=== PATIENT | female | born 1985 | race Caucasian/White ===

== ENCOUNTER 2018-07-05 12:31 | Emergency (ER) | payer BC ==
[~2018-07-05] VITALS: Ht 154.9 cm; Wt 97.7 kg
[2018-07-05 12:34] VITALS: Ht 154.9 cm; Wt 97.7 kg
[2018-07-05 13:05] LABS: BASOPHILS 0.2 % (0-2); EOSINOPHILS 2.1 % (0-7); HEMATOCRIT 41.6 % (36.0-48.0); HEMOGLOBIN 13.4 g/dL (12-16); IMMATURE GRANULOCYTES 0.1 % (0-5); LYMPHOCYTES 24.6 % (15-50); MCH 27.5 pg (26.0-34.0); MCHC 32.2 g/dL (31.0-37.0); MCV 85.2 fL (80.0-100.0); MEAN PLATELET VOLUME 10.4 fL (7.4-10.4); PLATELET COUNT 275 10x3/uL (130-400); RBC 4.88 10x6/uL (4.00-5.40); WBC 9.4 10x3/uL (4.8-10.8)
[2018-07-05 13:19] LABS: ALBUMIN 3.7 g/dL (3.4-5.0); ALKALINE PHOSPHATASE 69 U/L (46-116); ALT (SGPT) 16 U/L (10-68); BILIRUBIN - TOTAL 0.34 mg/dL (0.2-1.3); CALC OSMOLALITY 278 mosm/kg (275-300); CALCIUM 9.2 mg/dL (8.5-10.1); CARBON DIOXIDE 27.6 mmol/L (21.0-32.0); CHLORIDE - SERUM 101 mmol/L (98-107); CREATININE - SERUM 0.8 mg/dL (0.6-1.3); GLUCOSE 100 mg/dL (74-106); POTASSIUM - SERUM 3.9 mmol/L (3.5-5.1); PROTEIN - SERUM 7.7 g/dL (6.4-8.2); SODIUM 139 mmol/L (136-145); UREA NITROGEN 15 mg/dL (7-18); eGFR NON AFRICAN AMERICAN 88 mL/min (90-120)
[2018-07-05 13:40] LABS: HCG - QUANTITATIVE (MATERNAL) 14738 mIU/mL
[2018-07-05 15:38] LABS: APPEARANCE SL CLDY (CLEAR); BILIRUBIN NEGATIVE (NEGATIVE); COLOR YELLOW (YELLOW); GLUCOSE NEGATIVE (NEGATIVE); KETONE NEGATIVE (NEGATIVE); NITRITE NEGATIVE (NEGATIVE); PROTEIN NEGATIVE (NEGATIVE); SPECIFIC GRAVITY 1.005 (1.005-1.020); UROBILINOGEN NORMAL (NORMAL)
[2018-07-05 15:40] LABS: RED CELLS - URINE 0-5 /hpf (0-5); WHITE CELLS - URINE 0-5 /hpf (0-5)
[2018-07-05 15:41] LABS: BACTERIA MODERATE /hpf (NONE SEEN)
[2018-07-05 17:50] VITALS: BP 118/74
[2018-07-23 07:18] VITALS: Ht 154.9 cm; Wt 97.7 kg
== END 2018-07-05 17:51 | disposition home or self-care (01) ==
LOC: D.ER 12:31
PROVIDERS: Family Medicine
DX: O20.0 Threatened abortion (principal); Z3A.10 10 weeks gestation of pregnancy

== ENCOUNTER 2018-07-23 06:59 | Day surgery (SDC) | payer BC ==
[2018-07-21 17:05] LABS: BASOPHILS 0.5 % (0-2); EOSINOPHILS 2.4 % (0-7); HEMATOCRIT 40.5 % (36.0-48.0); HEMOGLOBIN 13.1 g/dL (12-16); IMMATURE GRANULOCYTES 0.1 % (0-5); LYMPHOCYTES 28.4 % (15-50); MCH 27.8 pg (26.0-34.0); MCHC 32.3 g/dL (31.0-37.0); MEAN PLATELET VOLUME 10.5 fL (7.4-10.4); NEUTROPHILS 63.6 % (40-80); PLATELET COUNT 269 10x3/uL (130-400); RBC 4.71 10x6/uL (4.00-5.40); RDW 13.3 % (11.5-14.5); WBC 10.3 10x3/uL (4.8-10.8)
[~2018-07-23] VITALS: Ht 154.9 cm; Wt 99.3 kg
--- NOTE | ~2018-07-23 | OP ---
PATIENT NAME: ROBE GARCIA MEDICAL RECORD: [id number] :87 [facility] ADMISSION DATE: SURGEON: KODY RUIZ MD DATE OF OPERATION: 07/23/2018 PREOPERATIVE DIAGNOSIS: Incomplete . POSTOPERATIVE DIAGNOSIS: Incomplete . PROCEDURE: Suction dilation and curettage. SURGEON: Kody Ruiz MD ANESTHESIA: General. INTRAVENOUS FLUIDS: Per anesthesia record. SPECIMENS: Endometrial curettings. COMPLICATIONS: None. FINDINGS: 1. Grossly normal-appearing external genitalia. 2. Cervix with small bleeding, but otherwise grossly normal. DESCRIPTION OF PROCEDURE: The patient was taken to the operating room, where general anesthesia was achieved without any difficulty. The patient was then prepped and draped in normal sterile fashion in the dorsal lithotomy position in the [facility]. The vagina was prepped with Betadine, and the bladder was drained of approximately 100 cc of clear urine. At this point, a Graves speculum was placed into the vagina and the cervix was grasped on its anterior lip with a single-tooth tenaculum. The patient was found to be partially dilated, and the dilator up to 9 mm was found to pass with minimal resistance. At this point, a #8 suction curette was then used to gently enter the endometrial canal. Two passes with the suction curette was performed with gross return of products of conception. A #1 sharp curette was then used to gently feel the 4 quadrants of the uterus and no further products of conception were palpated. A last pass was performed with the suction curette to remove blood. The tenaculum was removed. Only scant bleeding was noted from the cervical os at that time. The patient tolerated the procedure well, was transferred to postanesthesia recovery stable without incident. TRANSINT:[id number] Voice Confirmation ID: [id number] DOCUMENT ID: [id number] KODY RUIZ MD CC: [id number] DICTATION DATE: 08/08/18 0649 [employer] MACHINE OPERATOR: 08/08/18 1015 [facility] 07/23/18 [facility] [address] [place] [address]
[2018-07-23 07:18] VITALS: BP 109/72; Ht 154.9 cm; Wt 99.3 kg
[2018-07-23 07:21] LABS: HCG URINE NEGATIVE (NEGATIVE)
--- NOTE | 2018-07-23 10:10 | NUR ---
REC'D FROM RR. FAMILY AT BEDSIDE. DENIES PAIN. SPRITE AND FL TRAY BROUGHT TO PT.
--- NOTE | 2018-07-23 10:30 | NUR ---
CALLED DR PUCKETT'S OFFICE FOR DC ORDERS. TOLERATED FL TRAY.
--- NOTE | 2018-07-23 11:10 | NUR ---
VOIDED WITHOUT DIFFICULTY. IV DC'D WITH CATHETER INTACT. WRITTEN AND VERBAL DC INST GIVEN TO PT ALONG WITH RX. VERBALIZED UNDERSTANDING.
--- NOTE | 2018-07-23 11:45 | NUR ---
DC'D HOME WITH FAMILY VIA PRIVATE VEHICLE. TAKEN TO VEHICLE VIA WC. STABLE AT TIME OF DC.
== END 2018-07-23 11:45 | disposition home or self-care (01) ==
LOC: D.OPS 06:59 → D.PAN 09:00 → D.OPS 09:00
PROVIDERS: ATTEND Obstetrics & Gynecology
DX: O03.4 Incomplete spontaneous abortion without complication (principal)